=== PATIENT | female | born 1975 | race Caucasian/White ===

== ENCOUNTER 2022-05-21 09:04 | Emergency (ER) | payer BC, MEDICAID, SELFPAY ==
[2022-05-21 09:07] VITALS: BP 170/101; PULSE 88; RESP 18; TEMP 36.3; O2SAT 100
--- NOTE | 2022-05-21 09:20 | W.ED.FEMALGU ---
HPI - Female Genitourinary General: Chief complaint: Urogenital-Female Stated complaint: Bladder prolapse Time Seen by Provider: 05/21/22 09:14 Source: patient Mode of arrival: other (In custody of law enforcement) History of Present Illness: 46-year-old female presents to the emergency room with complaints of dysuria. She has been having problems with a bladder prolapse she is in custody at the [facility] and they had been trying to get an appointment with [facility] and evidently were told to come to the emergency room for referral. No fever sweats or chills. No flank pain. She has noticed some blood when she wipes but no hematuria with voiding. MD elicited complaint: dysuria Onset (ago): unknown Location of symptoms: external genitalia Severity: mild Quality of pain: cramping Consistency: intermittent Urinary symptoms: Dysuria, Flank Pain and Frequency Exacerbating factors: none Relieving factors: none Associated symptoms: Deny abdominal pain, short of breath, fevers/chills, headache(s), nausea, rash, seizures, syncope or weakness Treatment prior to arrival: none Review of Systems Const: Denies: fever(s), chills, body aches, change in appetite, fatigue or malaise ENMT: Denies: throat pain, ear or mastoid pain, nasal discharge or nasal congestion Card: Denies: syncope Resp: Denies: dyspnea, productive cough or non-productive cough GI: Denies: abdominal pain or nausea : Reports: difficulty voiding and dysuria; Denies: flank pain, urinary frequency or urinary urgency Skin/Breast: Denies: rash or pruritus Neuro: Denies: headache(s) PFS ED PFSH: Medical History (Updated 05/27/22 @ 06:10 by Tristan Mueller DO) Hypertension Social History (Updated 05/27/22 @ 06:10 by Tristan Mueller DO) Smoking and tobacco status: current every day smoker Physical Exam Const: GENERAL APPEARANCE: cooperative and comfortable ORIENTATION/CONSCIOUSNESS: Yes awake, Yes oriented to person, Yes oriented to place and Yes oriented to time HENMT: COMMON NORMALS: normocephalic, atraumatic and hearing grossly normal bilaterally HEAD & SCALP: normocephalic and atraumatic Resp: COMMON NORMALS: normal respiratory effort, No retractions, No use of accessory muscles and clear to auscultation bilaterally AUSCULTATION: clear to auscultation bilaterally Cardio: COMMON NORMALS: regular rate, regular rhythm and No murmurs present (Cardio) RATE: regular rate RHYTHM: regular rhythm GI: COMMON NORMALS: Soft to palpation and No hepatosplenomegaly present AUSCULTATION: Yes normoactive bowel sounds PALPATION: Yes Soft to palpation, No Tenderness to palpation present (GI), No Guarding due to palpation present (GI) and Yes No hepatosplenomegaly present : COMMON NORMALS: No no CVA tenderness, Yes normal external appearance and Yes normal appearance of the vagina BLADDER/KIDNEY EXAM: No no CVA tenderness EXTERNAL FEMALE EXAM: Yes normal appearance of the urethra SPECULUM EXAM - VAGINA: Yes vagina atrophic OTHER: With Valsalva maneuver there is no cystocele noted. Back/Pelvis: COMMON NORMALS: negative for no CVA tenderness Extremity: COMMON NORMALS: normal to inspection, capillary refill normal, no clubbing, cyanosis or edema, no calf tenderness and no pedal edema Neuro: SENSORIUM/ORIENTATION: Yes oriented to person, Yes oriented to place and Yes oriented to time Skin: COMMON NORMALS: no rashes or lesions noted GENERAL SKIN EXAM: no rashes or lesions noted Course Vital Signs: Vital signs: Vital Signs Temperature 97.4 F L 05/21/22 09:07 Pulse Rate 80 05/21/22 11:39 Respiratory Rate 15 05/21/22 10:39 Blood Pressure 145/100 05/21/22 10:39 Pulse Oximetry 97 05/21/22 11:39 Oxygen Delivery Me thod 05/21/22 10:39 MDM - Female Medical Decision Making No evidence of a cystocele. No external abnormalities if the perineal area. Recommend that the patient follow-up with gynecology she did have a mild UTI which was treated with Macrobid. Medical Records I reviewed the patient's medical records. Lab Data I reviewed the patient's lab results. Laboratory Results Urine Color Yellow (Yellow) 05/21/22 10:55 Urine Appearance Clear (CLEAR) 05/21/22 10:55 Urine pH 8 (5-7) H 05/21/22 10:55 Ur Specific Graham 1.015 (1.005-1.030) 05/21/22 10:55 Urine Protein Neg (Negative) 05/21/22 10:55 Urine Glucose (UA) Norm (Normal) 05/21/22 10:55 Urine Ketones Negative (Negative) 05/21/22 10:55 Urine Blood Neg (Negative) 05/21/22 10:55 Urine Nitrate Negative (Negative) 05/21/22 10:55 Urine Bilirubin Neg (Negative) 05/21/22 10:55 Prot Sulfosalicylic Acd Negative (Negative) 05/21/22 10:55 Urine Urobilinogen Norm mg/dL (Negative) 05/21/22 10:55 Ur Leukocyte Esterase Trace (Negative) H 05/21/22 10:55 Urine RBC 0-4 /hpf (0-2) H 05/21/22 10:55 Urine WBC 5-10 /hpf (0-5) H 05/21/22 10:55 Ur Squamous Epith Cells 0-4 /hpf (0-5) H 05/21/22 10:55 Amorphous Sediment Not Reportable 05/21/22 10:55 Urine Bacteria None /hpf (NONE) 05/21/22 10:55 Discharge Plan Discharge Patient Disposition: Home Clinical Impression: Cystocele, Urinary tract infection Condition: Stable Prescriptions: New Macrobid 100 mg capsule 100 mg PO BID 7 Days Qty: 14 0RF Rx Instructions: must administer with a meal/food No Action acyclovir 400 mg Tablet 400 mg PO BID lisinopril 10 mg Tablet 10 mg PO DAILY Discharge Orders: Discharge ED (Routine); Ordered 05/21/22 Ordered By: Tristan Mueller Discharge Diet: Usual diet Discharge Activity: Resume usual activity Patient Instructions: Opioid Safety, Pain Management Activity Restrictions/Additional Instructions: You are seen today for urinary tract symptoms. The initial dip on the urine looked negative but the lab sent out a micro that showed possible sign of a bladder infection. You were given a prescription for Macrobid for 7 days. The cystocele is likely causing most of your symptoms. Recommend that you follow-up with your primary care doctor for referral to gynecology. Coding Level of Care Code ED Art Therapy Certified Supervisor for [facility]
[2022-05-21 10:39] VITALS: BP 145/100; PULSE 69; RESP 15; O2SAT 100
[2022-05-21 11:07] LABS: Add Urine Microscopic? YES; Bilirubin Urine Neg (Negative); Blood Urine Neg (Negative); Glucose Urine UA Norm (Normal); Ketones Urine Negative (Negative); Leukocyte Esterase Urine Trace (Negative); Nitrate Urine Negative (Negative); Protein Urine Neg (Negative); Specific Gravity, Urine 1.015 (1.005-1.030); Urine Appearance Clear (CLEAR); Urine Color Yellow (Yellow); Urobilinogen Urine Norm (Negative); pH Urine 8 (5-7)
[2022-05-21 11:14] LABS: Add Urine Culture? No; RBC Urine 0-4 /hpf (0-2); Squamous Epithelial Cell Urine 0-4 /hpf (0-5)
[2022-05-21 11:15] LABS: Sulfosalicylic Acid Urine Negative (Negative)
[2022-05-21 11:39] VITALS: PULSE 80; O2SAT 97
== END 2022-05-21 11:40 | disposition home or self-care (01) ==
PROVIDERS: Emergency Provider Family Medicine
DX: N39.0 Urinary tract infection, site not specified (principal); N81.10 Cystocele, unspecified
CPT/HCPCS: 81001; 99283